=== PATIENT | female | born 1960 | race Caucasian/White ===

== ENCOUNTER → 2018-10-04 08:24 | Outpatient (CLI) | payer SELFPAY ==
--- NOTE | 2018-10-04 | DI.US.S_ITS ---
PROCEDURE: US FINE NEEDLE ASPIRATION INDICATIONS: LEFT PAROTID MASS TECHNIQUE: The indications, alternatives, benefits, risks, and complications of the procedure were explained to the patient. Written informed consent was obtained and placed in the chart. The left parotid gland complex cystic mass with internal septations and echoes was examined sonographically and a site was chosen for ultrasound guided percutaneous sampling. The skin was prepared and draped in the usual fashion, and anesthetized with 1% lidocaine infiltrated from the skin down to the lesion. Multiple passes were then performed, with contents emptied into an appropriate pathology specimen container. Large volume aspiration also performed, yielding approximately 16 cc of serous fluid. A bandage was applied to the area of access at completion of the study. COMPARISON: None. FINDINGS: Location(s) of lesion(s) sampled: Left parotid gland [place]: 25 and 18 gauge hypodermic needles. Number of passes: 9, plus large volume aspiration yielding approximately 16 cc Medications: 1% lidocaine for local anaesthesia. Complications: None. IMPRESSION: Successful ultrasound-guided left parotid complex cystic lesion fine needle aspiration, with cytology results pending. Dictated by: Emmanuel Cherry M.D. on 10/04/2018 at 14:10 Approved by: Emmanuel Cherry M.D. on 10/04/2018 at 14:14
--- NOTE | 2018-10-04 | PATH_ITS ---
Note [facility] Accession Number: [id number] TESTS RESULT FLAG UNITS REF RANGE LAB Clinician Provided Cytology Information No. of containers..01 ThinPrep Vial No. of containers..14 Previously Prepared Cytology Slide 01 L PAROTID MASS Clinician ICD10: 01 [place] DIAGNOSIS: 02 L PAROTID MASS NEGATIVE FOR MALIGNANT CELLS. THIS INTERPRETATION INCLUDES EVALUATION OF A CELL BLOCK. 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 PLEASE CORRELATE WITH CLINICAL AND IMAGING FINDINGS. Pathologist ICD10: 02 D11.9 02 Daina Juarez MD, Pathologist NPI- [id number] Meliton Sorto, Boiler Shop Mechanic ([facility]) 01 60 CC, BROWN, CLOUDY Also received 7 alcohol fixed and 7 quick stained slides. /HKH FLAG LEGEND: L-Low Normal,H-High Normal,LL-Alert Low,HH-Alert High <-Panic Low,>-Panic High,A-Abnormal,AA-Critical Abnormal Performed at: 01 =Z [facility] [address], [place] [address] Qasim Nielsen MD, 02 [facility] [address] [place] [id number] Chanel Langston MD, Performed at: 01 [facility] [address], [place], [place] [id number] MD Qasim Nielsen MD Phone: [phone]
== END ==
DX: D11.0 Benign neoplasm of parotid gland (principal)
CPT/HCPCS: 10005

== ENCOUNTER → 2018-10-06 08:33 | Outpatient (CLI) | payer SELFPAY ==
--- NOTE | 2018-10-06 | DI.MRI.S_ITS ---
PROCEDURE: MR ORBITS FACE NECK WO/W CON INDICATIONS: LEFT PAROTID MASS TECHNIQUE: Sagittal/axial/coronal T1 spin echo and STIR. After the administration of contrast, axial/coronal/sagittal T1 fast spin echo with fat saturation through the neck. COMPARISON: Outside Facility, RG, CT NECK WITH CONTRAST, 07/13/2018, 10:19. FINDINGS: Image quality: Excellent. Lymph nodes: No enlarged nodes are seen throughout the neck. Vessels: Visualized vasculature appears normal, with antonio flow voids and enhancement. Neck spaces: The oropharynx, nasopharynx and pharynx are unremarkable, without mucosal lesions seen. Vocal cords, false vocal cords, pyriform sinuses, epiglottis, vallecula, and tongue base all appear normal. Glands: There is a 4.7 x 4.1 x 4.3 cm mass in the superficial lobe of the left parotid gland. The lesion demonstrates hypointense T1 signal, hyperintense T2 signal and peripheral, irregular postcontrast enhancement. The lesion has an oval contour with relatively well-defined margins. Mild soft tissue edema is noted in the left neck adjacent to the lesion. The submandibular glands appear normal. Thyroid gland contains a 1.4 cm mildly enhancing nodule in the right lobe. Miscellaneous: Visualized brain and orbits appear normal. Lung apices appear clear. Superficial soft tissues appear normal. Visualized sinuses and mastoids appear clear. Bones: Marrow has normal overall signal. IMPRESSION: 1. 4.7 x 4.1 x 4.3 cm predominantly cystic mass involving the left parotid gland. Lesion is slightly increased in size compared to prior CT scan obtained 07/13/2018. Differential diagnosis includes benign etiologies such as Warthin's tumor or necrotic pleomorphic adenoma and Saji etiologies including mucoid epidermoid carcinoma, adenoid cystic carcinoma and necrotic metastatic lymph node. 2. No mucosal based masses. 3. No lymphadenopathy based on size criteria. 4. 1.4 cm right thyroid nodule. Recommend thyroid ultrasound for definitive characterization. Dictated by: Stephanie Montez MD, PhD on 10/06/2018 at 14:24 Approved by: Stephanie Montez MD, PhD on 10/06/2018 at 15:07
== END ==
DX: K11.9 Disease of salivary gland, unspecified (principal); E04.1 Nontoxic single thyroid nodule
CPT/HCPCS: 70543; A9579

== ENCOUNTER → 2018-11-02 11:37 | Outpatient (CLI) | payer OTHER, SELFPAY ==
[2018-11-02 12:16] LABS: Add Manual Diff / Slide Review NO; Basophils Absolute Auto 0 /uL (0-100); Basophils Percent Auto 0.4 % (0-2); Eosinophils Absolute Auto 100 /uL (0-450); Eosinophils Percent Auto 1.8 % (2-4); Hematocrit 45.4 % (36-46); Hemoglobin 15.1 g/dL (12.0-16.0); Lymphocytes Absolute Auto 1600 /uL (1100-4500); Lymphocytes Percent Auto 25.7 % (25-40); Mean Corpuscular HGB Conc 33.3 % (30-36); Mean Corpuscular Hemoglobin 30.1 PG (26-34); Mean Corpuscular Volume 90.3 fL (80-100); Monocytes Absolute Auto 500 /uL (0-900); Monocytes Percent Auto 8.3 % (3-14); Neutrophils Absolute Auto 4000 /uL (1500-7000); Neutrophils Percent Auto 63.8 % (50-75); Platelet Count 327 X10^3/uL (150-400); Red Blood Cell Count 5.03 X10^6/uL (4.0-5.2); Red Cell Distribution Width 13.2 % (11.6-14.8); White Blood Cell Count 6.3 X10^3/uL (4.5-11.0)
[2018-11-02 12:25] LABS: Prothrombin Time 11.4 SECONDS (10.1-12.7)
[2018-11-02 12:27] LABS: PTT Partial Thromboplastin Tim 36 SECONDS (26.4-36.2)
[2018-11-02 13:11] LABS: Alanine Aminotransferase 23 IU/L (9-52); Albumin 4.6 g/dL (3.5-5.0); Albumin Globulin Ratio 1.5 (1.0-2.8); Alkaline Phosphatase 117 U/L (38-126); Aspartate Aminotransferase 21 IU/L (14-36); BUN Creatinine Ratio 18.3 (6-22); Bilirubin Total 0.6 mg/dL (0.2-1.3); Blood Urea Nitrogen 11 mg/dL (7-17); Carbon Dioxide 31 mmol/L (22-32); Chloride 102 mmol/L (98-107); Estimated Glomerular Filt Rate > 60.0 mL/min (>60); Globulin 3.1 g/dL (1.7-4.1); Glucose 94 mg/dL (70-100); HEMOLYSIS < 15 (0-50); Potassium 4.6 mmol/L (3.4-5.1); Sodium 143 mmol/L (137-145); Total Protein 7.7 g/dL (6.3-8.2)
[2018-11-02 14:41] LABS: Pregnancy Test Serum,Qual Negative (Negative)
== END ==
PROVIDERS: Visit Provider Hospitalist
DX: Z01.818 Encounter for other preprocedural examination (principal)
CPT/HCPCS: 36415; 80053; 84443; 84703; 85025; 85610; 85730

== ENCOUNTER → 2019-08-08 11:13 | Outpatient (CLI) | payer OTHER, SELFPAY ==
[2019-08-08 19:13] LABS: Hep C Virus Ab w/Reflex Quant NEGATIVE s/c (NEGATIVE)
[2019-08-08 19:14] LABS: HIV 1 & 2 Ab/Ag 4th Gen Combo NEGATIVE (NEGATIVE)
[2019-08-09 03:21] LABS: HSV 2 IGG AB < 0.91 index (0.00-0.90)
[2019-08-09 05:36] LABS: EBV Virus IgM Ab < 36.0 U/mL (0.0-35.9); Varicella IgG Antibody 2721 index (Immune >165)
[2019-08-09 19:09] LABS: Varicella IgM Antibody <0.91 index (0.00-0.90)
[2019-08-10 13:36] LABS: Lead, Blood 1 ug/dL (0-4)
[2019-08-10 21:11] LABS: HSV I/II IgM 1.32 Ratio (0.00-0.90)
[2019-08-11 01:26] LABS: Epstein-Barr Anti R/D Negative (Neg:<1:20); Epstein-Barr Anti-Diffuse 1:40 (Neg:<1:20)
[2019-08-12 09:36] LABS: Glucose-6-Phosphate Dehydrogen 277 (146-376)
[2019-08-15 11:48] LABS: Arsenic 0
[2019-08-15 11:49] LABS: Mercury, Blood 0
== END ==
PROVIDERS: Visit Provider Internal Medicine
DX: D49.0 Neoplasm of unspecified behavior of digestive system (principal)
CPT/HCPCS: 36415; 82955; 83825; 85041; 86617; 86644; 86645; 86663; 86665; 86694; 86695; 86696; 86762; 86787; 86803; 87389